=== PATIENT | male | born 1935 | race Caucasian/White ===

== ENCOUNTER 2016-12-15 09:36 | Emergency (ER) | payer MEDICARE, BC ==
[2016-12-15 09:55] VITALS: BP 144/70
--- NOTE | 2016-12-15 10:19 | EDM.PDOC ---
[id number]: RASH ON ARM AND FACE Time Seen by Provider: 12/15/16 10:05 Source of Information: Reports: Patient History Limitations: Reports: No Limitations - History of Present Illness INITIAL COMMENTS - FREE TEXT/NARRATIVE: 81-year-old male was pulling weeds in his yard 2 days ago and now has a rash on the inside of his left arm, some rash between his fingers and around his eyes. It is pruritic, erythematous and the rash on his arm is somewhat vesicular. No respiratory complaints. Onset: Gradual (over the past 24 hours) Location: Reports: Face, Upper Extremity, Left, Upper Extremity, Right denies Pain Score (Numeric/FACES): 0 - Related Data Allergies Allergy/AdvReac Type Severity Reaction Status Date / Time No Known Allergies Allergy Verified 12/15/16 09:52 Home Meds: Home Meds Brimonidine Tartrate 1 drop EYEBOTH BID 05/05/13 [History] Brinzolamide [Azopt 1% Ophth Susp] 1 drop EYEBOTH BID 05/05/13 [History] Finasteride 5 mg PO DAILY 05/05/13 [History] Tamsulosin HCl 0.4 mg PO DAILY 05/05/13 [History] Aspirin 325 mg PO DAILY 09/27/13 [History] Clopidogrel [Plavix] 75 mg PO DAILY 05/28/14 [History] Metoprolol Succinate [Toprol XL] 50 mg PO DAILY 05/28/14 [History] Isosorbide Mononitrate [Imdur] 60 mg PO BID 07/07/15 [History] Nitroglycerin [Nitrostat] 0.4 mg SL ASDIRECTED PRN 07/07/15 [History] Omeprazole [Prilosec] 20 mg PO DAILY 07/07/15 [History] amLODIPine Besylate [Norvasc] 2.5 mg PO DAILY 07/07/15 [History] atorvaSTATin [Lipitor] 60 mg PO BEDTIME 07/07/15 [History] Past Medical History Cardiovascular History: Reports: Hypertension Genitourinary History: Reports: Prostate Disorder - Past Surgical History Cardiovascular Surgical History: Reports: Coronary Artery Bypass GI Surgical History: Reports: Colonoscopy, Colostomy, Other (See Below) Other GI Surgeries/Procedures: reversed colostomy also Musculoskeletal Surgical History: Reports: Knee Replacement Social & Family History - Tobacco Use Smoking Status *Q: Never Smoker Years of Tobacco use: 20 Used Tobacco, but Quit: Yes Month Tobacco Last Used: 1971 Second Hand Smoke Exposure: No - Alcohol Use Days Per Week of Alcohol Use: 6 Number of Drinks Per Day: 2 Total Drinks Per Week: 12 - Recreational Drug Use Recreational Drug Use: No ED ROS GENERAL - Review of Systems Review Of Systems: See Below Constitutional: Denies: Fever, Chills HEENT: Denies: Throat Swelling Respiratory: Denies: Shortness of Breath, Cough GI/Abdominal: Denies: Nausea, Vomiting Neurological: Denies: Headache ED EXAM, SKIN/RASH Exam: See Below Exam Limited By: No Limitations General Appearance: Alert, No Apparent Distress Eye Exam: Bilateral Eye: Periorbital Changes (Patient has some periorbital erythema and slight edema) Respiratory/Chest: No Respiratory Distress, Lungs Clear Neurological: Alert, Oriented Psychiatric: Normal Affect, Normal Mood Skin: Other (erythematous macular rash on the inside of the left elbow, and between his fingers bilaterally and around both eyes) Course - Vital Signs Last Recorded V/S: Last Vital Signs Temp 98.6 F 12/15/16 09:53 Pulse 61 12/15/16 09:53 Resp 15 12/15/16 09:53 BP 144/70 H 12/15/16 09:53 Pulse Ox 96 12/15/16 09:53 - Re-Assessments/Exams Free Text/Narrative Re-Assessment/Exam: 12/15/16 10:17 This patient appears to have a contact dermatitis, a little too wide spread to cover with topical especially considering his eyes are affected. He'll be placed on prednisone 50 mg daily for the next 3-6 days. He can also use some topical hydrocortisone. Departure - Departure Time of Disposition: 10:26 Disposition: Home, Self-Care 01 Condition: Good Clinical Impression: Contact dermatitis Qualifiers: Contact dermatitis type: irritant Contact dermatitis trigger: non-food plants Qualified Code(s): L24.7 - Irritant contact dermatitis due to plants, except food - Discharge Information Instructions: Contact Dermatitis, [id number] Referrals: Frandy Garcia MD [Primary Care Provider] - Forms: ED Department Discharge Care Plan Goals: Take 5 pills of prednisone with your first meal of the day for the next 3 days and up to 6 days if needed. Also topical hydrocortisone may help. Return in 2-3 days if not improving, or anytime sooner if worsening or concerns.
== END 2016-12-15 10:27 | disposition home or self-care (01) ==
LOC: JP.ED 09:36
DX: L24.7 Irritant contact dermatitis due to plants, except food (principal); I10 Essential (primary) hypertension; Z79.899 Other long term (current) drug therapy; Z79.82 Long term (current) use of aspirin; Z96.659 Presence of unspecified artificial knee joint
CPT/HCPCS: 99283